=== PATIENT | female | born 2000 | race Caucasian/White ===

== ENCOUNTER 2019-09-10 23:49 | Emergency (ER) | payer SELFPAY ==
[~2019-09-10] VITALS: Ht 162.6 cm; Wt 72.7 kg
[2019-09-11] MEDS ORDERED: NORCO 325 MG-51 TAB PO (00:14)
[2019-09-11] MEDS ORDERED: PEN-VEE K500 MG PO (00:14)
[2019-09-11 00:21] VITALS: BP 122/72; PULSE 70; TEMP 98.4
== END 2019-09-11 00:27 | disposition home or self-care (01) ==
LOC: COL.ER 23:49
DX: K04.7 Periapical abscess without sinus (principal)

== ENCOUNTER 2020-05-27 15:42 | Emergency (ER) | payer SELFPAY ==
[~2020-05-27] VITALS: Ht 162.6 cm; Wt 76.7 kg
[~2020-05-27 15:42] MED LIST: NORCO 325 MG-51 TAB PO; PEN-VEE K500 MG PO
[2020-05-27 15:49] VITALS: TEMP 98.4
[2020-05-27 16:20] LABS: BASO % 0.4 % (0.0-2.0); EOS # 0.2 (0.0-0.7); EOS % 1.8 % (0-4.0); GRAN % 69.6 % (42.2-75.2); HEMATOCRIT 38.2 % (37.0-47.0); LYMPH # 1.9 (1.2-3.4); LYMPH % 21.6 % (20.0-51.0); MEAN CELL VOLUME 87 fl (80.0-100.0); MEAN CORPUSCULAR HEMOGLOBIN 30 pg (27.0-31.0); MEAN CORPUSCULAR HGB CONC 34 g/dl (33.0-37.0); MONO # 0.6 (0.1-0.6); MONO % 6.4 % (1.7-9.3); PLATELET COUNT 351 K/mm3 (130-400); RED BLOOD COUNT 4.38 M/mm3 (4.10-5.30); REDCELL DISTRIBUTION WIDTH-CV 12.2 % (11.5-14.5)
[2020-05-27 18:26] LABS: COLLECTION METHOD CLEAN CATCH
[2020-05-27 18:34] LABS: PH 7 (5-8); SQUAMOUS EPITHELIAL 0-2 /hpf; URINE APPEARANCE Clear; URINE BACTERIA Rare /hpf; URINE BILIRUBIN Negative (NEGATIVE); URINE BLOOD 2+ (NEGATIVE); URINE COLOR Yellow; URINE GLUCOSE Negative (NEGATIVE); URINE KETONE Negative (NEGATIVE); URINE LEUKOCYTE ESTERASE Negative (NEGATIVE); URINE NITRATE Negative (NEGATIVE); URINE PROTEIN(semi-quant) Negative (NEGATIVE); URINE UROBILINOGEN Negative (NEGATIVE)
[2020-05-27 20:30] VITALS: BP 121/81; PULSE 80
== END 2020-05-27 20:30 | disposition home or self-care (01) ==
LOC: COL.ER 15:42
PROVIDERS: Emergency Medicine; Nurse Practitioner
DX: N92.6 Irregular menstruation, unspecified (principal)